=== PATIENT | female | born 1990 | race Two or more races ===

== ENCOUNTER → 2024-03-11 | Outpatient (CLI) | payer OTHER, SELFPAY ==
[2024-03-11 14:34] LABS: Glucose Estimated Average 126 mg/dL (80-131)
[2024-03-11 14:58] LABS: T4 (Thyroxine) 8.1 mcg/dL (4.5-10.9)
[2024-03-11 14:59] LABS: Free T3 3.1 pg/mL (2.3-4.2); Thyroid Stimulating Hormone 4.96 uIU/mL (0.55-4.78)
[2024-03-16 06:29] LABS: Thyroid Peroxidase Antibodies* 682 IU/mL (<9)
== END | disposition home or self-care (01) ==
LOC: COPL 13:00
PROVIDERS: PCP Registered Nurse; Referring Provider Registered Nurse; Visit Provider Registered Nurse
DX: E05.00 Thyrotoxicosis with diffuse goiter without thyrotoxic crisis or storm (principal); E11.65 Type 2 diabetes mellitus with hyperglycemia
CPT/HCPCS: 36415; 83036; 84436; 84443; 84481; 86376

== ENCOUNTER → 2024-08-04 | Outpatient (CLI) | payer OTHER, SELFPAY ==
[2024-08-04 10:39] LABS: Glucose Estimated Average 146 mg/dL (80-131); Hemoglobin A1C 6.7 % Hgb (4.8-6.0)
[2024-08-04 10:59] LABS: Free T3 3.4 pg/mL (2.3-4.2); Free T4 (Free Thyroxine) 1.04 ng/dL (0.89-1.76)
[2024-08-09 06:41] LABS: Thyroid Peroxidase Antibodies* 570 IU/mL (<9)
== END | disposition home or self-care (01) ==
PROVIDERS: PCP Family Medicine; Referring Provider Registered Nurse; Visit Provider Registered Nurse
DX: E05.00 Thyrotoxicosis with diffuse goiter without thyrotoxic crisis or storm (principal); E11.65 Type 2 diabetes mellitus with hyperglycemia
CPT/HCPCS: 36415; 83036; 84439; 84443; 84481; 86376